=== PATIENT | male | born 1955 | race Caucasian/White ===

== ENCOUNTER 2022-01-20 19:41 | Emergency (ER) | payer BC, MEDICAID, MEDICARE, OTHER ==
[2022-01-20] MEDS ORDERED: Mineral Oil/Petrolatum Ophth Oint 3.5 GM Tube EYELF SCH (22:15)
[2022-01-21] MEDS ORDERED: Mineral Oil/Petrolatum Ophth Oint 3.5 GM Tube EYELF SCH (21:00)
== END 2022-01-20 22:24 | disposition home or self-care (01) ==
LOC: JP.ED 19:41
DX: G51.0 Bell's palsy (principal); D64.9 Anemia, unspecified; I10 Essential (primary) hypertension; E78.00 Pure hypercholesterolemia, unspecified; E66.9 Obesity, unspecified; Z68.31 Body mass index [BMI] 31.0-31.9, adult; Z79.899 Other long term (current) drug therapy
CPT/HCPCS: 36415; 70450; 80053; 85025; 85651; 86618; 99282; 99285-25; A9270-GY

== ENCOUNTER 2023-03-26 08:47 | Emergency (ER) | payer BC, MEDICARE ==
[2023-03-26] MEDS ORDERED: diphenhydrAMINE 50 MG/ML SDV IVPUSH ONE (09:05)
[2023-03-26] MEDS ORDERED: methylPREDNISolone Sodium Succinate 125 MG/2 ML SDV IVPUSH ONE (09:06)
[2023-03-26] MEDS ORDERED: EPINEPHrine 1 MG/ML SDV IM ONE (09:07)
== END 2023-03-26 12:00 | disposition home or self-care (01) ==
LOC: JP.ED 08:47
DX: T78.3XXA Angioneurotic edema, initial encounter (principal); I10 Essential (primary) hypertension; E66.9 Obesity, unspecified; Z91.038 Other insect allergy status; E78.00 Pure hypercholesterolemia, unspecified; Z79.84 Long term (current) use of oral hypoglycemic drugs; Z79.899 Other long term (current) drug therapy; Z86.16 Personal history of COVID-19
CPT/HCPCS: 96372; 96374; 96375; 99283; J0171; J1200; J2930

== ENCOUNTER 2023-08-09 08:22 | Day surgery (SDC) | payer MEDICARE ==
[2023-08-09] MEDS ORDERED: Lactated Ringers 1,000 ML IV SCH (09:00)
[2023-08-09] MEDS ORDERED: Midazolam 1 MG/ML 2 ML SDV ONE (09:10)
[2023-08-09] MEDS ORDERED: fentaNYL 50 MCG/ML SDV ONE (09:10)
[2023-08-09] MEDS ORDERED: Propofol 200 MG/20 ML SDV ONE (09:10)
== END 2023-08-09 11:15 | disposition home or self-care (01) ==
LOC: JP.SDS 08:22
PROVIDERS: ATTEND Student in an Organized Health Care Education/Training Program
DX: D12.3 Benign neoplasm of transverse colon (principal); D12.5 Benign neoplasm of sigmoid colon; D50.9 Iron deficiency anemia, unspecified; K44.9 Diaphragmatic hernia without obstruction or gangrene; K22.89 Other specified disease of esophagus; I10 Essential (primary) hypertension; K21.9 Gastro-esophageal reflux disease without esophagitis; K29.70 Gastritis, unspecified, without bleeding; Z91.038 Other insect allergy status; Z79.899 Other long term (current) drug therapy
CPT/HCPCS: 88305; 88342; J2250; J2704; J3010; J7120

== ENCOUNTER 2024-04-09 09:49 | Emergency (ER) | payer MEDICARE | END 2024-04-09 11:36 | disposition home or self-care (01) | LOC: JP.ED 09:49 | DX: M62.830 Muscle spasm of back (principal); I10 Essential (primary) hypertension; E78.00 Pure hypercholesterolemia, unspecified; K21.9 Gastro-esophageal reflux disease without esophagitis; E66.9 Obesity, unspecified; Z86.16 Personal history of COVID-19; Z79.84 Long term (current) use of oral hypoglycemic drugs; Z79.899 Other long term (current) drug therapy; Z91.038 Other insect allergy status; Z68.29 Body mass index [BMI] 29.0-29.9, adult | CPT/HCPCS: 99283 ==

== ENCOUNTER 2025-09-02 13:59 | Emergency (ER) | payer MEDICARE ==
[2025-09-02 14:29] LABS: APPEARANCE,URINE SLIGHTLY CLOUDY (CLEAR); GLUCOSE,URINE NEGATIVE (NEGATIVE); OCCULT BLOOD,URINE SMALL (NEGATIVE)
[2025-09-02 14:41] LABS: SQUAMOUS EPITHELIAL CELLS,UR FEW /HPF
[2025-09-02 14:42] LABS: UROTHELIAL CELLS,URINE FEW /HPF
== END 2025-09-02 15:05 | disposition home or self-care (01) ==
LOC: JP.ED 13:59
DX: N39.0 Urinary tract infection, site not specified (principal); I10 Essential (primary) hypertension; E78.00 Pure hypercholesterolemia, unspecified; E66.9 Obesity, unspecified; K21.9 Gastro-esophageal reflux disease without esophagitis; Z79.899 Other long term (current) drug therapy; Z91.030 Bee allergy status; Z86.16 Personal history of COVID-19; Z68.28 Body mass index [BMI] 28.0-28.9, adult
CPT/HCPCS: 81001; 87086; 87088; 87186; 99283